=== PATIENT | female | born 1970 | race Caucasian/White ===

== ENCOUNTER 2017-05-07 09:47 | Emergency (ER) | payer OTHER ==
[~2017-05-07] VITALS: Ht 152.4 cm; Wt 133.8 kg
[2017-05-07] MEDS ORDERED: ALPRAZOLAM1 MG PO (12:32)
== END 2017-05-07 12:43 | disposition home or self-care (01) ==
LOC: ER 09:47
DX: R00.2 Palpitations (principal); F04 Amnestic disorder due to known physiological condition

== ENCOUNTER 2017-11-12 08:37 | Outpatient (CLI) | payer OTHER ==
[~2017-11-12 08:37] MED LIST: ALPRAZOLAM1 MG PO
== END 2017-11-12 08:48 | disposition home or self-care (01) ==
LOC: SONOGRAMA 08:37
DX: R10.84 Generalized abdominal pain (principal)

== ENCOUNTER 2018-08-16 09:51 | Outpatient (CLI) | payer OTHER | END 2018-08-16 11:44 | disposition home or self-care (01) | LOC: LAB 09:51 | DX: J11.1 Influenza due to unidentified influenza virus with other respiratory manifestations (principal) ==

== ENCOUNTER 2023-04-28 09:40 | Emergency (ER) | payer OTHER ==
[~2023-04-28] VITALS: Ht 152.4 cm; Wt 90.7 kg
== END 2023-04-28 13:00 | disposition home or self-care (01) ==
LOC: ER 09:41
DX: J00 Acute nasopharyngitis [common cold] (principal)

== ENCOUNTER 2023-10-02 07:34 | Outpatient (CLI) | payer OTHER | END 2023-10-02 07:35 | disposition home or self-care (01) | LOC: NUCLEAR 07:34 | PROVIDERS: ATTEND Internal Medicine Rheumatology | DX: M05.79 Rheumatoid arthritis with rheumatoid factor of multiple sites without organ or systems involvement (principal) ==